=== PATIENT | female | born 1960 | race Caucasian/White ===

== ENCOUNTER → 2019-07-11 | Outpatient (CLI) | payer BC ==
--- NOTE | 2019-07-11 11:11 | US ---
EXAMINATION TYPE: US thyroid st tissue head/neck DATE OF EXAM: 07/11/2019 COMPARISON: NONE CLINICAL HISTORY: R13.10 MASS. Dysphagia on medicine for years. GLAND SIZE: Right Lobe: 4.2 x 1.4 x 1.5 cm Overall Parenchyma: heterogenous Left Lobe: 4.2 x 1.6 x 2.2 cm Overall Parenchyma: heterogeneous Isthmus Thickness: .8 cm NODULES RIGHT: # of nodules measured on right: 0 LEFT: # of nodules measured on left: 0 ISTHMUS: # of nodules measured in the isthmus: 0 Bilateral neck scanned, no evidence of lymphadenopathy. There is markedly heterogeneous thyroid without discrete nodule. The isthmus is slightly thickened. O verall thyroid gland is not enlarged. IMPRESSION: As above.
--- NOTE | 2019-07-11 14:55 | FL ---
EXAMINATION TYPE: FL UGI air DATE OF EXAM: 07/11/2019 COMPARISON: NONE HISTORY: Dysphagia then present for last 4 months upper esophageal level per patient. TECHNIQUE: A double contrast UGI study is performed. Total 61 seconds of fluoroscopic time utilized. 80 spot images are saved. FINDINGS: Engine Tester image of the abdomen shows overall nonobstructive bowel gas pattern. Cholecystectomy clips are seen. The esophagus shows satisfactory motility and emptying into the stomach. No diverticulum or focal str icture. No large mucosal lesion. No fixed hiatal hernia. The stomach shows suboptimal distention without focal ulcer. A posterior gastric diverticulum in the fundus is thought present. No significant gastroesophageal reflux was seen during real time performan ce of this study. The duodenal bulb, sweep, and proximal small bowel loops are unremarkable. IMPRESSION: No suspicious upper esophageal lesion seen to account for patient's symptoms.
== END | disposition home or self-care (01) ==
LOC: RADUSWWP 09:49
PROVIDERS: ATTEND Family Medicine
DX: E07.89 Other specified disorders of thyroid (principal)
CPT/HCPCS: 74246; 76536

== ENCOUNTER → 2022-03-30 | Outpatient (CLI) | payer BC ==
--- NOTE | 2022-03-30 10:06 | MR ---
EXAMINATION TYPE: MR angio head wo con DATE OF EXAM: 03/30/2022 COMPARISON: MR brain same date HISTORY: Migraines. I 67.1 TECHNIQUE: Time of flight images focusing on the [place] were performed without contrast. Th ree-dimensional reconstructions performed on an alternate workstation and reviewed FINDINGS: The left vertebral artery is dominant. The anterior and posterior circulation are patent. T here is some motion on exam. There is no evident dissection, aneurysm, stenosis, embolus. IMPRESSION: No significant abnormality is evident
--- NOTE | 2022-03-30 10:49 | MR ---
MR brain without contrast HISTORY: Migraine headaches, I 67.1 Multiplanar multisequence imaging through the brain, correlation to MR angiogram of the brain same da te There is some motion on exam. There is no restricted diffusion. There is no hemorrhage or hydrocephalus. There are scattered hyperi ntensities in the periventricular, subcortical white matter on inversion recovery and T2-weighted seq uences. At the level the convexity on the right juxtacortical hyperintensity measures 1 cm on axial i mage 28 in the right frontal lobe. There are likely 30-40 lesions present. There are expected vascula r flow voids. No mass effect or midline shift. There is inflammatory change in ethmoid air cells, max illary sinus. The corpus callosum, pituitary, cervical medullary junction, cerebellopontine angles ar e within normal limits. Some probable Virchow-Isreal spaces or small lacunar infarcts are present with in the parietal white matter, sagittal image 21, 11 of the T1 data set. IMPRESSION: Nonspecific signal changes could be related to chronic small vessel ischemia. Sinus disea se.
== END | disposition home or self-care (01) ==
LOC: RADMRIMAIN 08:42
PROVIDERS: ATTEND Psychiatry & Neurology Neurology
DX: I67.1 Cerebral aneurysm, nonruptured (principal)
CPT/HCPCS: 70544; 70551